=== PATIENT | male | born 1975 | race Two or more races ===

== ENCOUNTER 2017-01-19 00:38 | Observation (INO) | payer SELFPAY ==
--- NOTE | ~2017-01-19 | ST ---
Unit #: [id number] #: [id number] Patient: KAY MADRIGAL [id number] [address] [address] [id number] I MR#: [id number] NAME: KAY MADRIGAL : 1975 SEX: M STUDY DATE/TIME: 01/19/2017 UNIT: CEDOF ROOM: 01959 STUDY DESCRIPTION: Stress test Attending Physician: Jan Villa M.D. Primary Care Physician: No Primary Care Physician CARDIOLOGY REPORT EXAM Stress test. FINDINGS Baseline EKG: Normal sinus rhythm. Normal EKG. Resting heart rate: 93 per minute. Blood pressure: 100/65. This 41-year-old patient was exercised on a Juventino protocol for 11 minutes achieving a heart rate of 160 per minute which was 88% of the maximum heart rate. Peak blood pressure 130/70. Maximum workload obtained was 12.8 METs. Exercise was terminated because of fatigue. No ischemic changes noted. No arrhythmias noted. Blood pressure response was normal. INTERPRETATION 1. Negative exercise test for ischemia. 2. No arrhythmias noted. 3. Normal blood pressure response to exercise. 4. Correlate with the Cardiolite study. Dictated by... Nikole Cardenas/krishna TD: 01/19/2017 14:07 JOB #: [id number] CARDIOLOGY REPORT Page 1 of 1 X Cece Norman MD CARDIOLOGY REPORT
--- NOTE | ~2017-01-19 | HP ---
Unit #: [id number] #: [id number] Patient: KAY MADRIGAL [id number] [address] [address] [id number] Arelis MR#: [id number] NAME: KAY MADRIGAL ROOM: 35316 Age: 41 Sex: M Admission Date: 01/19/2017 : 1975 Attending Physician: Jan Villa M.D. Primary Care Physician: No Primary Care Physician HISTORY AND PHYSICAL CHIEF COMPLAINT Chest pain. HISTORY OF PRESENT ILLNESS Mr. Madrigal is a Tajik-speaking male. There is a certified government affairs specialist working here in the emergency room, which I was able to use for translation for this interview. He presented to the emergency room at 38 minutes after midnight with a complaint of chest pain. He states that he has had 3 months of regular chest pain every night that is considered stabbing. He states that he will put pressure on his chest on the left side, and it will resolve slightly, and then he is able to go to sleep. When he awakens in the morning, he has no chest pain. He has no further symptoms with his chest discomfort, including no nausea, vomiting, shortness of breath or diaphoresis. 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 PRIOR CARDIAC TESTING HISTORY Denies. PAST MEDICAL HISTORY Denies. HOME MEDICATIONS None. ALLERGIES No known drug allergies. SOCIAL HISTORY He is a 5-bufshrqah-vmv-day smoker since the age of 21. He occasionally would drink alcohol until he quit in July of 2016. He denies the use of drugs. FAMILY HISTORY Mother with diabetes. REVIEW OF SYSTEMS GENERAL: Denies any fever but has occasional chills. No flu-like symptoms. Has had 14-pound weight loss intentionally over the last 2 months. SKIN: Denies any rashes, ulcerations or wounds. HEADACHE: Denies any increase in headaches. Unit #: [id number] #: [id number] Patient: KAY MADRIGAL EYES: Denies any sudden change in vision. EARS: Denies any sudden change in hearing. BLEEDING: Denies epistaxis, hemoptysis, hematuria or melena. THROAT: Denies any problems swallowing. LUNGS: Denies any wheeze or shortness of breath but states that he has had a recent cough with some phlegm and congestion. CHEST: Positive for pain. No palpitations. Occasional tachycardia. No PND or orthopnea. GI: Denies any nausea, vomiting, diarrhea, constipation or change in stools. GENITOURINARY: Denies any burning or urgency. EXTREMITIES: Denies any swelling or increased pain with walking. NEUROLOGIC: Positive for numbness occasionally of his legs. No seizures, stroke-like symptoms, dizziness, unsteadiness or falls. PHYSICAL EXAMINATION VITAL SIGNS: Blood pressure is 99/68, heart rate 60, respirations 12, temperature 97.7, 168 pounds, 98% oxygenated on room air. GENERAL: Well-developed, well-nourished Tajik-speaking male in no acute distress, resting in the bed. SKIN: No obvious rashes or ulcerations noted. EYES: PERRLA. No xanthelasma. ORAL: Good dentition. Moist mucous membranes. No pallor. NECK: No carotid bruits auscultated bilaterally. No jugular venous distention. SPINE: No scoliosis. RESPIRATORY: Clear to auscultation bilaterally. No wheezes, rales or rhonchi. CARDIAC: S1 and S2. No murmur, rub, gallop or lift. ABDOMEN: Soft, nontender. Positive bowel sounds. EXTREMITIES: Bilateral pedal pulses +2. No edema. NEUROLOGIC: Alert and oriented x3. Speech is clear. No obvious neuro deficits. DIAGNOSTIC STUDIES LABORATORY: Troponin of less than 0.05. Hemoglobin 13.5, hematocrit 40.4, platelets 245 and white blood cell count 5.9. PT 10.8, INR 1. Sodium 138, potassium 3.8, glucose 110, BUN 16, creatinine 0.7, AST 23, ALT 26, albumin 4 and lipase of 26. IMPRESSION 1. Chest pain. 2. Positive tobacco abuse. PLAN We will complete a plane treadmill stress test, as well as a two-D echocardiogram. Further recommendations will be based on the above-mentioned testing. He has only had the one troponin level, and that will be repeated prior to completion of these tests. That test is actually pending at this time. Dr. Norman also evaluating at the bedside currently. Dictated by Zahra Day.P.R.Anselmo Norman M.D. Unit #: [id number] #: [id number] Patient: KAY MADRIGAL/rosalee TD: 01/19/2017 09:03 JOB #: [id number] HISTORY AND PHYSICAL Page 1 of 1 X X HISTORY AND PHYSICAL
--- NOTE | ~2017-01-19 | CR72 ---
[facility] A Service of [facility] RADIOLOGY TEXT RESULTS PATIENT: KAY MADRIGAL LOCATION: [facility] 316-01 : [birth year] UNIT #: [id number] AGE: [address]: Jan Villa MD SEX: M ORDER DR: [id number] [place], [place] [address] [id number] I MR#: [id number] Acc #: [id number] NAME: KAY MADRIGAL : 1975 SEX: M STUDY DATE/TIME: 01/19/2017 2:25 [facility]: 71189 STUDY DESCRIPTION: CR Chest Single View Portable Attending Physician: Jan Villa M.D. Ordering Physician: Anthony Hart Aprn Primary Care Physician: Primary Care Physician No MEDICAL IMAGING REPORT This report is preliminary unless electronic signature is present EXAM Portable chest INDICATIONS Chest pain for the past 3 months. PROCEDURE Frontal view chest COMPARISON None FINDINGS Heart size upper limits of normal. No dense consolidation, pleural fluid or pneumothorax. IMPRESSION No active process. Dictated by... Mahesh Coreas M.D. THIS IS AN ELECTRONICALLY VERIFIED REPORT Mahesh Coreas M.D. at 01/19/2017 10:09 PM Annie TD: 01/19/2017 09:39 JOB #: [id number] MEDICAL IMAGING REPORT Page 1 of 1 COPY
--- NOTE | ~2017-01-19 | EKG ---
PATIENT: KAY MADRIGAL UNIT #: [id number] Ventricular Rate: 76 BPM Atrial Rate: 76 BPM P-R Interval: 182 ms QRS Duration: 82 ms Q-T Interval: 366 ms QTC Calculation(Bezet): 411 ms P Hewlett: 46 degrees Calculated R Hewlett: 60 degrees Calculated T Hewlett: 45 degrees Diagnosis Line: Normal sinus rhythm Diagnosis Line: Normal ECG Diagnosis Line: When compared with ECG of 19-JAN-2017 00:39, Diagnosis Line: (unconfirmed) Diagnosis Line: Premature ventricular complexes are no longer Diagnosis Line: Present Diagnosis Line: QRS axis Shifted left Diagnosis Line: Non-specific change in ST segment in Lateral leads Diagnosis Line: Confirmed by ENOCH GOODRICH MD ([id number]) on Diagnosis Line: 01/19/2017 2:00:57 PM INTERPRETING MD: KP SANCHEZ
--- NOTE | ~2017-01-19 | DS ---
Unit #: [id number] #: [id number] Patient: KAY MADRIGAL [id number] [address] [place], [place] [address] [id number] I MR#: [id number] NAME: KAY MADRIGAL ROOM: 316 Age: 41 Sex: M Admission Date: 01/19/2017 : 1975 Discharge Date: 01/19/2017 Attending Physician: Jan Villa M.D. Primary Care Physician: No Primary Care Physician DISCHARGE SUMMARY ADMITTING DIAGNOSES 1. Chest pain. 2. Positive tobacco abuse. DISCHARGE DIAGNOSES 1. Chest pain - presumed noncardiac based on testing. 2. Positive tobacco abuse. PROCEDURES Procedures performed during hospitalization include: 1. Stress pictures of a treadmill Cardiolite were completed which showed no ischemia. 2. Chest x-ray shows no active processes. HOSPITAL COURSE Mr. Madrigal is a 41-year-old Tajik-speaking male with an approved eating disorder psychologist at the bedside. He was complaining of three months of chest pain, usually every night with strenuous activity. He was to complete a plain treadmill stress test; however, just a few minutes into the test, he went from zero chest pain to 5/10 chest pain on a scale of 0-10. He then was injected with Cardiolite for further imaging due to this abnormality of chest pain while exercising. These stress pictures have been read as normal. His echocardiogram has been read as normal, and he will be discharged home. I have discussed with him other causes of chest pain which obviously are not as concerning as cardiac chest pain, the most likely being gastrointestinal. We will initiate Nexium, and I have encouraged him to take it for a solid two weeks to see if there is improvement. I have also encouraged him to follow up with primary care physician as well as with Dr. Villa with cardiology in the next three to four weeks. He verbalizes understanding through the eating disorder psychologist at the bedside. He currently is pain free. DIAGNOSTIC STUDIES LABORATORY: His pertinent labs during hospitalization include: Troponin less than 0.03 and less than 0.05 x2 at point of care. Sodium 138, potassium 3.8, glucose 110, BUN 16, creatinine 0.7. AST 23, ALT 26, albumin 4, lipase 26. PT 10.8, INR 1. Hemoglobin 13.5, hematocrit 40.4, platelets 245,000, and white blood cell count 5.9. DISCHARGE MEDICATIONS Nexium 40 mg daily. DISCHARGE INSTRUCTIONS 1. Diet: Regular diet. Unit #: [id number] #: [id number] Patient: KAY MADRIGAL 2. Activity: As tolerated. 3. Followup visit will be with primary care physician as well as with Dr. Villa in the next three to four weeks. Dictated by... Seda Salazar, A.P.R.N. for Nikole Cardenas/emily TD: 01/21/2017 09:16 JOB #: [id number] DISCHARGE SUMMARY Page 1 of 1 X X DISCHARGE SUMMARY
--- NOTE | ~2017-01-19 | TH ---
Unit #: [id number] #: [id number] Patient: KAY MADRIGAL [id number] [address] [address] [id number] I MR#: [id number] NAME: KAY MADRIGAL : 1975 SEX: M STUDY DATE/TIME: 01/19/2017 UNIT: C3A PCU ROOM: 316 STUDY DESCRIPTION: Cardiolite study Attending Physician: Jan Villa M.D. Primary Care Physician: No Primary Care Physician CARDIOLOGY REPORT EXAM Cardiolite study. FINDINGS This 41-year-old patient was exercised on a treadmill. At the peak of exercise, the patient was injected with 30 mCi of Tc-99m Cardiolite and images were obtained according to a standard SPECT protocol. Rest images were now obtained. Review of SPECT images showed normal homogeneous radiotracer concentration throughout the myocardium on the stress images. IMPRESSION Myocardial perfusion imaging is normal. No evidence of ischemia or infarct. Normal LV dimensions. Dictated by... Nikole Cardenas/krishna TD: 01/19/2017 14:10 JOB #: [id number] CARDIOLOGY REPORT Page 1 of 1 X Cece Norman MD CARDIOLOGY REPORT
[2017-01-19 02:54] LABS: BASOPHIL% 0.4 % (0-2.5); EOSINOPHIL# 0.1 X10e3 (0-0.7); EOSINOPHIL% 2.2 % (0.0-7.0); HEMATOCRIT 40.4 % (38.0-50.0); HEMOGLOBIN 13.5 gm/dL (13.0-16.0); LYMPHOCYTE# 1.7 X10e3 (1.0-3.5); LYMPHOCYTE% 29.1 % (17.0-45.0); MEAN CELL VOLUME 89.2 FL (83-96); MEAN CORPUSCULAR HEMOGLOBIN 29.7 PG (28-34); MEAN CORPUSCULAR HGB CONC 33.3 g/dL (30-36); MEAN PLATELET VOLUME 8.1 FL (6.5-11.5); MONOCYTE# 0.6 X10e3 (0-1.0); MONOCYTE% 10.7 % (3.0-12.0); NEUTROPHIL# 3.4 X10e3 (1.5-7.1); NEUTROPHIL% 57.6 % (40-75); PLATELET COUNT 245 X10e3 (140-420); RED BLOOD COUNT 4.53 X10e (3.90-5.60); RED CELL DISTRIBUTION WIDTH 13.2 % (11.0-15.5); WHITE BLOOD COUNT 5.9 X10e3 (4.0-10.5)
[2017-01-19 02:57] LABS: POC - CKMB 1.1 ng/mL (0.0-7.9); POC - TROPONIN <0.05 ng/mL (<=0.05)
[2017-01-19 03:10] LABS: PARTIAL THROMBOPLASTIN TIME 27.3 SECONDS (23.5-31.3); PROTHROMBIN TIME (PATIENT) 10.8 SECONDS (9.6-11.5)
[2017-01-19 03:16] LABS: DIFF IND NO
[2017-01-19 03:17] LABS: BILIRUBIN,TOTAL 0.7 mg/dL (0.2-2.0); BUN/CREATININE RATIO 22.85; CALCIUM SERUM 8.7 mg/dL (8.4-10.2); CREATININE SERUM 0.7 mg/dL (0.6-1.4); GLOM FILT RATE Estimated 118.9 mL/min (>60); POTASSIUM 3.8 mmol/L (3.5-5.1); PROTEIN TOTAL SERUM 6.8 g/dL (6.0-8.3)
[2017-01-19 03:19] LABS: BILIRUBIN, DIRECT 0.1 mg/dL (0.0-0.2); BILIRUBIN,INDIRECT 0.6 mg/dL (0.0-0.9)
[2017-01-19 09:17] LABS: POC - CKMB <1.0 ng/mL (0.0-7.9); POC - TROPONIN <0.05 ng/mL (<=0.05)
[2017-01-19 09:43] LABS: %MB 1.4 % (0.0-4.0); MB 2.7 ng/ml
[2017-01-19] MEDS ORDERED: NO MEDICATIONS (09:48)
[2017-01-19] MEDS ORDERED: NEXIUM PO (14:02)
[2017-01-19 15:36] LABS: %MB 1.5 % (0.0-4.0); MB 2.7 ng/ml
== END 2017-01-19 14:51 | disposition home or self-care (01) | DRG 313 ==
LOC: CED 00:38 → CEDOF 05:20 → CED 05:44 → C3A PCU 09:23 → CEDOF 09:23 → C3A PCU 09:23
PROVIDERS: Nurse Practitioner Family
DX: R07.89 Other chest pain (principal); F17.210 Nicotine dependence, cigarettes, uncomplicated; Z83.3 Family history of diabetes mellitus
CPT/HCPCS: 36415; 71010; 78451; 80048; 80076; 82550; 82553; 83690; 84484; 85025; 85610; 85730; 93005; 93017; 93306; 96372; 99285; A9500; G0378; J1885